=== PATIENT | male | born 1995 | race Hispanic/Latino ===

== ENCOUNTER 2020-10-24 16:06 | Emergency (ER) | payer OTHER, SELFPAY ==
[2020-10-24] MEDS ORDERED: TETANUS & DIPHTHERIA TOX,ADULT 0.5 ML VIAL ONE (20:31)
--- NOTE | 2020-10-24 21:21 | ER ---
Nurse's Notes [facility] Name: Amanuel Thomas Age: 25 yrs Sex: Male : 1995 Arrival Date: 10/24/2020 Time: 16:09 Bed 24 Private MD: Diagnosis: Laceration without foreign body of right wrist Presentation: 10/24 16:24 Chief complaint: Patient states: Lac on R wrist around 0640. Bleeding controlled. ca1 Coronavirus screen: Client denies travel out of the [place] in the last 14 days. At this time, the client does not indicate any symptoms associated with coronavirus-19. Ebola Screen: Patient negative for fever greater than or equal to 101.5 degrees Fahrenheit, and additional compatible Ebola Virus Disease symptoms Patient denies exposure to infectious person. Patient denies travel to an Ebola-affected area in the 21 days before illness onset. No symptoms or risks identified at this time. Initial Sepsis Screen: Does the patient meet any 2 criteria? No. Patient's initial sepsis screen is negative. Does the patient have a suspected source of infection? No. Patient's initial sepsis screen is negative. Risk Assessment: Do you want to hurt yourself or someone else? Patient reports no desire to harm self or others. 16:24 Method Of Arrival: Ambulatory ca1 16:24 Onset of symptoms was October 24, 2020. ca1 16:24 Acuity: STANISLAW 4 ca1 20:09 Complicating Factors: There are no complicating factors for this patient. zb Historical: - Allergies: 16:26 No Known Allergies; ca1 - Home Meds: 16:26 None [Active]; ca1 - PMHx: 16:26 None; ca1 - PSHx: 16:26 None; ca1 - Immunization history:: Last tetanus immunization: unknown, Flu vaccine is not up to date. - Social history:: Smoking status: Patient reports the use of cigarette tobacco products, smokes one pack cigarettes per day. Screenin:08 Abuse screen: Denies threats or abuse. Denies injuries from another. Nutritional zb screening: No deficits noted. Tuberculosis screening: No symptoms or risk factors identified. Fall Risk None identified. Assessment: 20:06 General: Appears in no apparent distress. comfortable, Behavior is calm, cooperative, zb appropriate for age. Pain: Complains of pain in palmar aspect of right forearm Pain does not radiate. Pain currently is 2 out of 10 on a pain scale. Quality of pain is described as aching, Pain began suddenly, today. Neuro: Level of Consciousness is awake, alert, obeys commands, Oriented to person, place, time, situation. Cardiovascular: Capillary refill < 3 seconds in bilateral fingers Patient's skin is warm and dry. Respiratory: Airway is patent Respiratory effort is even, unlabored, Respiratory pattern is regular, symmetrical. GI: No signs and/or symptoms were reported involving the gastrointestinal system. : No signs and/or symptoms were reported regarding the genitourinary system. EENT: No deficits noted. Derm: Skin is healthy with good turgor, Skin is dry, Skin is normal, Skin temperature is warm. Musculoskeletal: Circulation, motion, and sensation intact. Capillary refill < 3 seconds, Range of motion: intact in all extremities. Injury Description: Laceration sustained to palmar aspect of right forearm is jagged, not bleeding, was sustained 6-12 hours ago. is bleeding no active bleeding noted. 20:35 Reassessment: steri strips applied. patient tolerated well. given dressing instructions.zb Vital Signs: 16:24 BP 127 / 79; Pulse 100; Resp 16 S; Temp 98.9(TE); Pulse Ox 98% on R/A; Weight 104.33 kg ca1 (R); Height 5 ft. 4 in. (162.56 cm) (R); Pain 0/10; 19:07 BP 125 / 86; Pulse 99; Resp 20; Pulse Ox 98% ; sp 20:09 BP 138 / 97; Pulse 97; Resp 16; Pulse Ox 98% on R/A; zb 20:41 BP 140 / 85; Pulse 98; Resp 16; Pulse Ox 99% on R/A; zb 16:24 Body Mass Index 39.48 (104.33 kg, 162.56 cm) ca1 ED Course: 16:09 Patient arrived in ED. as 16:25 Triage completed. ca1 16:26 Arm band placed on right wrist. ca1 19:23 Rosie London [facility]. kb 19:23 Homer Werner MD is Attending Physician. kb 20:04 Adrianna Rdz RN is Primary Nurse. zb 20:09 Patient has correct armband on for positive identification. Pulse ox on. NIBP on. Door zb closed. Noise minimized. 20:40 No provider procedures requiring assistance completed. Patient did not have IV access zb during this emergency room visit. 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 Exp: zb 01/07/2022. Lot #: [id number]. } Route: IM; Site: left deltoid; Outcome: 20:28 Discharge ordered by MD. fonseca 20:41 Discharged to home ambulatory. zb 20:41 Condition: stable 20:41 Discharge instructions given to patient, Instructed on discharge instructions, follow up and referral plans. Demonstrated understanding of instructions, follow-up care, wound care. 20:42 Patient left the ED. zb Signatures: Rosie London, SPRAY CEMENTER-C SPRAY CEMENTER-Ckb Manisha Ma Amelia as Acob, Adriana, RN RN ca1 Adrianna Rdz RN RN zb Corrections: (The following items were deleted from the chart) 16:27 16:24 104.33 kg Reported; Height 5 ft. 4 in. Reported; BMI: 39.4; Pain 0/10; ca1 ca1
--- NOTE | 2020-10-24 21:21 | EDPHYS ---
Physician Documentation [facility] Name: Amanuel Thomas Age: 25 yrs Sex: Male : 1995 Arrival Date: 10/24/2020 Time: 16:09 Bed 24 Private MD: ED Physician Homer Werner HPI: 10/24 22:45 This 25 yrs old Male presents to ER via Ambulatory with complaints of kb Laceration - r wrist. 22:45 The patient has a laceration related to: falling from a standing position, occurred kb outdoors, and there are no complicating factors. The injury was accidental. The laceration(s) is(are) located on the palmar aspect of right forearm. Onset: The symptoms/episode began/occurred this morning. Associated signs and symptoms: The patient has no apparent associated signs or symptoms. The patient has not experienced similar symptoms in the past. The patient has not recently seen a physician. Pt states he fell with a glass bottle in his hand. States the glass broke and cut his arm. Historical: - Allergies: 16:26 No Known Allergies; ca1 - Home Meds: 16:26 None [Active]; ca1 - PMHx: 16:26 None; ca1 - PSHx: 16:26 None; ca1 - Immunization history:: Last tetanus immunization: unknown, Flu vaccine is not up to date. - Social history:: Smoking status: Patient reports the use of cigarette tobacco products, smokes one pack cigarettes per day. ROS: 22:45 Constitutional: Negative for fever, chills, and weight loss, Cardiovascular: Negative kb for chest pain, palpitations, and edema, Respiratory: Negative for shortness of breath, cough, wheezing, and pleuritic chest pain, Abdomen/GI: Negative for abdominal pain, nausea, vomiting, diarrhea, and constipation, MS/Extremity: Negative for injury and deformity, Neuro: Negative for headache, weakness, numbness, tingling, and seizure. 22:45 Skin: Positive for laceration(s), of the palmar aspect of right forearm. Exam: 22:44 Constitutional: This is a well developed, well nourished patient who is awake, alert, kb and in no acute distress. Head/Face: Normocephalic, atraumatic. Chest/axilla: Normal chest wall appearance and motion. Nontender with no deformity. No lesions are appreciated. Cardiovascular: Regular rate and rhythm with a normal S1 and S2. No gallops, murmurs, or rubs. Normal PMI, no JVD. No pulse deficits. Respiratory: Lungs have equal breath sounds bilaterally, clear to auscultation and percussion. No rales, rhonchi or wheezes noted. No increased work of breathing, no retractions or nasal flaring. Abdomen/GI: Soft, non-tender, with normal bowel sounds. No distension or tympany. No guarding or rebound. No evidence of tenderness throughout. MS/ Extremity: Pulses equal, no cyanosis. Neurovascular intact. Full, normal range of motion. Neuro: Awake and alert, GCS 15, oriented to person, place, time, and situation. Cranial nerves II-XII grossly intact. Motor strength 5/5 in all extremities. Sensory grossly intact. Cerebellar exam normal. Normal gait. 22:44 Skin: injury, laceration(s), the wound is approximately 1.5 cm(s), of the palmar aspect of right forearm, that can be described as clean, no foreign body, irregular, without bleeding, avulsion laceration/skin tear. Vital Signs: 16:24 BP 127 / 79; Pulse 100; Resp 16 S; Temp 98.9(TE); Pulse Ox 98% on R/A; Weight 104.33 kg ca1 (R); Height 5 ft. 4 in. (162.56 cm) (R); Pain 0/10; 19:07 BP 125 / 86; Pulse 99; Resp 20; Pulse Ox 98% ; sp 20:09 BP 138 / 97; Pulse 97; Resp 16; Pulse Ox 98% on R/A; zb 20:41 BP 140 / 85; Pulse 98; Resp 16; Pulse Ox 99% on R/A; zb 16:24 Body Mass Index 39.48 (104.33 kg, 162.56 cm) ca1 MDM: 20:05 Patient medically screened. kb 22:44 Data reviewed: vital signs, nurses notes. Data interpreted: Pulse oximetry: on room air kb is 99 %. Interpretation: normal. Counseling: I had a detailed discussion with the patient and/or guardian regarding: the historical points, exam findings, and any diagnostic results supporting the discharge/admit diagnosis, the need for outpatient follow up, a family practitioner, to return to the emergency department if symptoms worsen or persist or if there are any questions or concerns that arise at home. 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 Exp: zb 01/07/2022. Lot #: [id number]. } Route: IM; Site: left deltoid; Disposition: 10/25 01:30 Co-signature as Attending Physician, Homer Werner MD. rn Disposition: 10/24/20 20:28 Discharged to Home. Impression: Laceration without foreign body of right wrist. - Condition is Stable. - Discharge Instructions: Laceration Care, Adult, [id number]. - Work release form, Medication Reconciliation Form, Thank You Letter, Antibiotic Education, Prescription Opioid Use form. - Follow up: Emergency Department; When: As needed; Reason: Worsening of condition. Follow up: Private Physician; When: 2 - 3 days; Reason: Recheck today's complaints, Continuance of care, Re-evaluation by your physician. Signatures: Rosie London, COMPLIANCE ENGINEER-C COMPLIANCE ENGINEER-Ckb oHmer Werner MD MD rn Soraya, Adriana RN Adrianna Nicole RN RN zb Corrections: (The following items were deleted from the chart) 10/24 20:42 20:28 10/24/2020 20:28 Discharged to Home. Impression: Laceration without foreign body zb of right wrist. Condition is Stable. Forms are Medication Reconciliation Form, Thank You Letter, Antibiotic Education, Prescription Opioid Use. Follow up: Emergency Department; When: As needed; Reason: Worsening of condition. Follow up: Private Physician; When: 2 - 3 days; Reason: Recheck today's complaints, Continuance of care, Re-evaluation by your physician. kb
[2020-10-25 00:45] VITALS: TEMP 98.9
[2020-10-25 00:49] VITALS: BP 140/85; O2SAT 99
== END 2020-10-24 20:42 | disposition home or self-care (01) ==
LOC: ER 16:06
DX: S61.511A Laceration without foreign body of right wrist, initial encounter (principal); W01.110A Fall on same level from slipping, tripping and stumbling with subsequent striking against sharp glass, initial encounter; Y93.9 Activity, unspecified; Y92.9 Unspecified place or not applicable; Z23 Encounter for immunization
CPT/HCPCS: 90471; 90714; 99283